=== PATIENT | female | born 1995 | race Caucasian/White ===

== ENCOUNTER 2023-04-21 19:53 | Emergency (ER) | payer BC, SELFPAY ==
--- NOTE | ~2023-04-21 | XR_ITS ---
EXAMINATION: XR CHEST CLINICAL INFORMATION: Pain COMPARISON: None available. TECHNIQUE: 2 views of the chest were obtained. FINDINGS: No significant abnormality is noted involving the heart, lungs, mediastinum, bony thorax or soft tissues. XR/XR chest 2V IMPRESSION: Unremarkable examination.
--- NOTE | 2023-04-21 20:00 | ECG_ITS ---
Test Reason : CP Blood Pressure : / mmHG Vent. Rate : 112 BPM Atrial Rate : 112 BPM P-R Int : 134 ms QRS Dur : 074 ms QT Int : 310 ms P-R-T Axes : 066 082 031 degrees QTc Int : 423 ms Sinus tachycardia with Sinus Arrhythmia Otherwise normal ECG No previous ECGs available Referred By: Saurabh Ascencio Electronically Signed By:EVON DUPONT MD
[2023-04-21 20:21] VITALS: BP 133/77; PULSE 87; RESP 22; TEMP 36.2; O2SAT 98; BMI 23.2
--- NOTE | 2023-04-21 20:22 | ED.GENADULT ---
HPI - General Adult General Chief complaint: Chest Pain Stated complaint: chest pain Time Seen by Provider: 04/22/23 02:51 Source: patient Mode of arrival: ambulatory Limitations: no limitations History of Present Illness HPI narrative: Patient with no significant past medical history with history of anxiety work got almost every day after working out returning to home patient felt palpitation with chest pain and shortness of breath with bilateral tingling sensation Related Data Allergies Allergy/AdvReac Type Severity Reaction Status Date / Time No Known Allergies Allergy Verified 04/21/23 20:21 Review of Systems Review of Systems: Yes all other systems are reviewed and are negative [facility] Social History Social History Smoked in Last 30 Days: No Advance Directives: No Advance Directives Information Provided: Yes Patient : No Physical Exam ED Vital Signs: Vital Signs - 24 hr 04/21/23 20:21 04/22/23 02:00 Temperature 97.1 F 98.2 F Pulse Rate 87 78 Respiratory Rate 22 H 16 Blood Pressure 133/77 124/73 Pulse Oximetry 98 98 Oxygen Delivery Method Room Air BMI result Body Mass Index 23.2 Appearance: Alert. Oriented X3. No acute distress. Eyes: PERRLA, No Nystagmus ENT: Pharynx normal. Oral Mucosa moist Neck: Normal inspection. Neck supple. CVS: Normal heart rate and rhythm. Pulses normal. No murmur/rub/ gallop Respiratory: No respiratory distress. Equal air entry bilateral, no wheezing/rales/rhonchi Abdomen: Soft and nontender. Bowel sounds are present, no mass palpable, no CVA tenderness Skin: Skin warm and dry. Normal skin color. Normal skin turgor. Extremities: No lower extremity edema. No calf tenderness Neuro: Oriented X 3. No motor deficit. No sensory deficit.No cerebellar signs , cranial nerves II-XII intact Course Course Course Narrative: RME- 27 year old female presents for evaluation of shortness of breath that started 2 hours ago. She also reports mid sternal chest tightness. The patient is tachycardic. She is on control. Patient had EKG. Plan for labs including coags, chest x-ray, troponin Medical Decision Making Differential Diagnosis Anxiety/palpitations/PE/ACS Lab Data [facility] Lab Attestation statement: I reviewed the patient's lab results. 04/21/23 22:38 Labs: Lab Results 04/21/23 04/21/23 04/21/23 Range/Units 22:38 22:38 22:38 PT 10.5 (10.0-13.1) SEC INR 0.9 (0.9-1.1) APTT 27.1 (26.0-36.4) SEC D-Dimer High Sensitivty NG/ML Sodium 140 (135-145) mmol/L Potassium 3.9 (3.3-5.1) mmol/L Chloride 106 (96-108) mmol/L Carbon Dioxide 26 (22-29) mmol/L Anion Gap 12 (12-20) BUN 11 (9-16) mg/dL Creatinine 0.76 (0.5-1.4) mg/dL Estim Creat Clear Calc 117.2 Estimated GFR > 60 Random Glucose 120 H (60-115) mg/dL Calcium 9.5 (8.4-10.2) mg/dL Total Bilirubin 0.5 (0.0-1.0) mg/dL AST 20 (5-31) U/L ALT 13 (0-31) U/L Alkaline Phosphatase 44 (39-117) U/L Troponin I High Sens < 2.7 (<3.5-17.0) ng/L Total Protein 7.5 (6.5-8.0) g/dL Albumin 4.3 (3.5-5.0) g/dL Lipase 21 (8-78) U/L 04/21/23 Range/Units 22:38 PT (10.0-13.1) SEC INR (0.9-1.1) APTT (26.0-36.4) SEC D-Dimer High Sensitivty < 150 NG/ML Sodium (135-145) mmol/L Potassium (3.3-5.1) mmol/L Chloride (96-108) mmol/L Carbon Dioxide (22-29) mmol/L Anion Gap (12-20) BUN (9-16) mg/dL Creatinine (0.5-1.4) mg/dL Estim Creat Clear Calc Estimated GFR Random Glucose (60-115) mg/dL Calcium (8.4-10.2) mg/dL Total Bilirubin (0.0-1.0) mg/dL AST (5-31) U/L ALT (0-31) U/L Alkaline Phosphatase (39-117) U/L Troponin I High Sens (<3.5-17.0) ng/L Total Protein (6.5-8.0) g/dL Albumin (3.5-5.0) g/dL Lipase (8-78) U/L Independent Interpretation I performed an independent interpretation of an: EKG Interpretation: Sinus tachycardia with heart rate 112 beats per minute normal axis no acute ST-T changes no acute ischemia Discharge Plan Discharge Clinical Impression: Atypical chest pain, Palpitations Patient Disposition: Home, Self-Care Instructions: Chest Pain (ED), Heart Palpitations (ED) Additional Instructions: Drink plenty of fluids avoid caffeine drink Follow with PCP/leather sorter for an echocardiogram and further management Referrals: Alverto Kaiser MD [Physician] -
[2023-04-21 22:58] LABS: D Dimer High Sensitivity < 150 NG/ML
[2023-04-21 23:02] LABS: Alanine Aminotransferase 13 U/L (0-31); Albumin Level 4.3 g/dL (3.5-5.0); Alkaline Phosphatase 44 U/L (39-117); Anion Gap 12 (12-20); Aspartate Amino Transferase 20 U/L (5-31); Bilirubin Total 0.5 mg/dL (0.0-1.0); Blood Urea Nitrogen 11 mg/dL (9-16); Calcium 9.5 mg/dL (8.4-10.2); Carbon Dioxide 26 mmol/L (22-29); Chloride 106 mmol/L (96-108); Creatinine Clr Calc Pharmacy 117.2; Estimated Glomerular Filt Rate > 60; Glucose Random 120 mg/dL (60-115); Lipase 21 U/L (8-78); Potassium 3.9 mmol/L (3.3-5.1); Sodium 140 mmol/L (135-145); Total Protein 7.5 g/dL (6.5-8.0)
[2023-04-21 23:17] LABS: Troponin-I High Sensitivity < 2.7 ng/L (<3.5-17.0)
[2023-04-22 01:18] LABS: INTERNATIONAL NORM RATIO 0.9 (0.9-1.1); Prothrombin Time 10.5 SEC (10.0-13.1)
[2023-04-22 01:21] LABS: Partial Thromboplastin Time 27.1 SEC (26.0-36.4)
[2023-04-22 02:00] VITALS: BP 124/73; PULSE 78; RESP 16; TEMP 36.8; O2SAT 98
== END 2023-04-22 03:21 | disposition home or self-care (01) ==
PROVIDERS: Physician Assistant; Emergency Provider Internal Medicine
DX: R07.89 Other chest pain (principal); R00.2 Palpitations; R06.02 Shortness of breath; R20.2 Paresthesia of skin
CPT/HCPCS: 36415; 71046; 80053; 83690; 84484; 85379; 85610; 85730; 93005; 99283; 99285

== ENCOUNTER → 2023-04-21 20:00 | Outpatient (BNV) | payer BC, SELFPAY | PROVIDERS: Emergency Provider Internal Medicine; Visit Provider Internal Medicine Cardiovascular Disease | DX: R07.9 Chest pain, unspecified (principal) | CPT/HCPCS: 93010 ==